=== PATIENT | female | born 1970 | race Caucasian/White ===

== ENCOUNTER → 2017-02-12 | Outpatient (CLI) | payer MEDICARE, OTHER ==
--- NOTE | ~2017-02-12 | MR32 ---
[facility] A Service of [facility] RADIOLOGY TEXT RESULTS PATIENT: JACKSON GAO LOCATION: [facility] : 66 UNIT #: [id number] AGE: [address]: Alfie Jones MD SEX: F ORDER DR: [id number] [facility] [address] [place], [place] [address] [id number] O MR#: [id number] Acc #: [id number] NAME: JACKSON GAO : 1970 SEX: F STUDY DATE/TIME: 02/12/2017 14:36 UNIT: [facility] ROOM: STUDY DESCRIPTION: MR Cervical Wo Contrast Attending Physician: Alfie Jones M.D. Referring Physician: Alfie Jones M.D. Ordering Physician: Alfie Jones M.D. Primary Care Physician: Devyn Andres M.D MRI CENTER REPORT This report is preliminary unless electronic signature is present. EXAM Cervical spine MRI without contrast. DATE OF STUDY 01/15/2017 PROCEDURE Routine unenhanced cervical spine MRI. COMPARISON CT cervical spine dated 04/08/2016. CLINICAL HISTORY Chronic neck and left shoulder and arm pain and numbness. Cervical fusion in 2012. Recent increase in left arm pain and numbness for several weeks. FINDINGS The patient has had anterior fusion at C6-7. Allowing for metallic field distortion, bone marrow signal is otherwise normal. The paraspinous tissues are unremarkable. At 2-3, the canal and foramina are normal. At 3-4, the canal and foramina are normal. At 4-5, the canal and right foramen are normal, and there is minimal left foraminal narrowing. At 5-6, the canal and right foramen are normal. There is minimal if any left foraminal narrowing. At 6-7, there is slight canal narrowing and minimal if any right and no left foraminal narrowing. [facility] A Service of [facility] RADIOLOGY TEXT RESULTS PATIENT: JACKSON GAO LOCATION: [facility] : 66 UNIT #: [id number] AGE: [address]: Alfie oJnes MD SEX: F ORDER DR: At 7-1, the canal and foramina are normal. IMPRESSION Modest degenerative change, status post anterior fusion at 6-7. No acute-appearing abnormality at any level. Dictated by... Robby Stanford M.D. THIS IS AN ELECTRONICALLY VERIFIED REPORT Robby Stanford M.D. at 02/13/2017 4:58 PM VASHTI/adriano TD: 02/12/2017 18:23 JOB #: [id number] [facility] REPORT Page 1 of 1 COPY
== END | disposition home or self-care (01) ==
LOC: CMRI 13:29
DX: M54.12 Radiculopathy, cervical region (principal); M47.22 Other spondylosis with radiculopathy, cervical region
CPT/HCPCS: 72141